=== PATIENT | male | born 1990 | race Caucasian/White ===

== ENCOUNTER 2017-10-26 23:05 | Inpatient (IN) | payer SELFPAY ==
[~2017-10-26] VITALS: Ht 175.3 cm; Wt 60.5 kg
[2017-10-26] MEDS ORDERED: 0.9 % SODIUM CHLORIDE 10 ML DISP.SYRIN. IV PRN (23:45)
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
[2017-10-27] VITALS (14 sets, daily range): BP systolic 94–140; BP diastolic 4–71
[2017-10-27 00:08] LABS: BASO % 0 % (0-3); EOS % 0 % (0-3); HEMATOCRIT 44.3 % (39.0-53.0); HEMOGLOBIN 15.2 g/dL (13.0-17.5); LYMPH # 1.1 x10^3/uL (1.0-4.8); LYMPH % 8 % (24-48); MEAN CORPUSCULAR HEMOGLOBIN 30 pg (25-35); MEAN CORPUSCULAR HGB CONC 34 g/dL (31-37); MEAN CORPUSCULAR VOLUME 87 fL (79-100); MONO # 0.5 x10^3/uL (0.0-1.1); MONO % 4 % (0-9); NEUT # 12.4 x10^3uL (1.8-7.7); NEUT % 88 % (31-73); PLATELET COUNT 301 x10^3/uL (140-400); RED BLOOD COUNT 5.12 x10^6/uL (4.30-5.70); RED CELL DISTRIBUTION WIDTH 13.1 % (11.5-14.5)
[2017-10-27 00:22] LABS: BACTERIA,URINE 0 /HPF (0-FEW); BILIRUBIN,URINE NEG (NEG); CLARITY,URINE CLEAR; COLOR,URINE YELLOW; GLUCOSE,URINE NEG (NEG); NITRITE,URINE NEG (NEG); RBC,URINE 0 /HPF (0-2); SQUAMOUS EPITHELIAL CELL,UR OCC /LPF; UROBILINOGEN,URINE 0.2 mg/dL (0.2 mg/dL); WBC,URINE RARE /HPF (0-4)
[2017-10-27 00:24] LABS: CREATININE 1.1 mg/dL (0.7-1.3); DIRECT BILIRUBIN 0.2 mg/dL (0.0-0.2); GFR 80.9; MAGNESIUM 2.2 mg/dL (1.8-2.4); POTASSIUM 3.3 mmol/L (3.5-5.1); TOTAL BILIRUBIN 0.8 mg/dL (0.2-1.0); TOTAL PROTEIN 8.7 g/dL (6.4-8.2)
[2017-10-27 00:25] LABS: BARBITURATES NEG (NEG); BENZODIAZEPINES NEG (NEG); CANNABINOIDS NEG (NEG); COCAINE NEG (NEG); METHADONE NEG (NEG); OPIATES NEG (NEG); PHENCYCLIDINE NEG (NEG)
[2017-10-27 00:26] LABS: AMPHETAMINE/METHAMPHETAMINE NEG (NEG)
--- NOTE | 2017-10-27 00:43 | EKG ---
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
[2017-10-27] MEDS ORDERED: ONDANSETRON PF 4 MG/2 ML VIAL. IV PRN (01:30)
[2017-10-27] MEDS ORDERED: LORazepam 2 MG/ML VIAL IV PRN (01:30)
[2017-10-27 06:54] LABS: CALCIUM 8.8 mg/dL (8.5-10.1); CREATININE 0.9 mg/dL (0.7-1.3); POTASSIUM 3.9 mmol/L (3.5-5.1)
[2017-10-27] MEDS ORDERED: MVI, ADULT NO.4 WITH VIT K 10 ML, FOLIC ACID 1 MG, THIAMINE 100 MG in IV NORMAL SALINE ... IV ONE ×4 (11:00)
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
== END 2017-10-27 18:45 | disposition left against medical advice (07) | DRG 880 ==
LOC: ER 23:05 → ICU 10-27 01:13
PROVIDERS: ADMIT Internal Medicine; ATTEND Internal Medicine
DX: R45.851 Suicidal ideations (principal); D72.829 Elevated white blood cell count, unspecified; E87.6 Hypokalemia; S00.81XA Abrasion of other part of head, initial encounter; F10.129 Alcohol abuse with intoxication, unspecified; W18.30XA Fall on same level, unspecified, initial encounter; Y90.8 Blood alcohol level of 240 mg/100 ml or more; Z53.21 Procedure and treatment not carried out due to patient leaving prior to being seen by health care provider; Z87.891 Personal history of nicotine dependence; Y93.89 Activity, other specified; Y92.009 Unspecified place in unspecified non-institutional (private) residence as the place of occurrence of the external cause; Y99.8 Other external cause status; Z91.013 Allergy to seafood
CPT/HCPCS: 36415; 80048; 80076; 80307; 81001; 83735; 85025; 87641; 93005; 99406; G0480; G0479; J7030